=== PATIENT | female | born 1990 ===

== ENCOUNTER 2017-11-26 00:19 | Emergency (ER) | payer MEDICAID ==
[2017-11-26 00:20] VITALS: BMI 32.2
--- NOTE | 2017-11-26 00:40 | C.PDOC ---
History Of Present Illness Patient with a Hx of seizures presents to the ER after having seizure at home. Patient states she was at home taking a shower and next thing she knew she was walking out of the bathroom somewhat confused and had 2nd degree carlos to the tips of her right 3rd and 4th fingers. Patient believes she had a seizure, fell , and burned her fingers on a heater in the bathroom. Patient does not remember falling, denies headache, dizziness, or vomiting. Time Seen by Provider: 11/26/17 00:39 Chief Complaint (Nursing): Seizure History Per: Patient History/Exam Limitations: no limitations Recent Seizure Activity Began: Just Before Arrival Number Of Seizures: One Length Of Seizures (Duration): Unknown Quality Of Seizure: Generalized Precipitating Factor(s): None Associated Symptoms: Other (Carlos to right 3rd and 4th finger tips) Post-ictal Period: Duration Unknown Severity: Moderate Pain Scale Rating Of: 4 Recent travel outside of the [place]: No Past Medical History Reviewed: Historical Data, Nursing Documentation, Vital Signs Vital Signs: Last Vital Signs Temp 98.4 F 11/26/17 00:30 Pulse 73 11/26/17 00:30 Resp 18 11/26/17 00:30 BP 128/83 11/26/17 00:30 Pulse Ox 100 11/26/17 02:46 - Medical History PMH: Graves' Disease, Seizures Family History: States: No Known Family Hx - Social History Hx Alcohol Use: No Hx Substance Use: No - Immunization History Hx Tetanus Toxoid Vaccination: No Hx Influenza Vaccination: No Hx Pneumococcal Vaccination: No Review Of Systems Constitutional: Negative for: Fever, Chills Cardiovascular: Negative for: Chest Pain Respiratory: Negative for: Shortness of Breath Gastrointestinal: Negative for: Vomiting Skin: Positive for: Other (Carlos to right 3rd and 4th finger tips.) Neurological: Positive for: Seizures. Negative for: Headache, Dizziness Physical Exam - Physical Exam Appears: Non-toxic Skin: Warm, Dry Head: Atraumatic, Normacephalic Eye(s): bilateral: Normal Inspection, PERRL, EOMI Oral Mucosa: Moist Neck: Normal ROM, No Midline Cervical Tenderness, No Paracervical Tenderness, No Step Off Deformity, Supple Chest: Symmetrical, No Tenderness Cardiovascular: Rhythm Regular Respiratory: No Rales, No Rhonchi, No Wheezing Gastrointestinal/Abdominal: Soft, No Tenderness Extremity: Other (Bullae to tips of right 3rd and 4th fingers) Neurological/Psych: Oriented x3 ED Course And Treatment - Laboratory Results Result Diagrams: 11/26/17 01:32 11/26/17 01:32 O2 Sat by Pulse Oximetry: 100 (Room air) Pulse Ox Interpretation: Normal Progress Note: CT head and urinalysis ordered. Tetanus vaccination and IV fluids administered. Reevaluation Time: 03:35 Reassessment Condition: Improved Disposition Counseled Patient/Family Regarding: Studies Performed, Diagnosis, Need For Followup, Rx Given - Disposition Referrals: [facility] [Outside] [facility] [Outside] Disposition: HOME/ ROUTINE Disposition Time: 00:40 Condition: FAIR Additional Instructions: Please return if symptoms recur Prescriptions: Bacitracin OINT 1 applic TP TID #1 tube Ibuprofen [Motrin Tab] 800 mg PO TID #15 tab Instructions: Epilepsy (DC), Second Degree Burn (ED) Forms: [employer] (Guatemalan) Print Language: SWAZI - Clinical Impression Clinical Impression: Seizure, Burn of finger of right hand, second degree - Scribe Statement The provider has reviewed the documentation as recorded by the Scribbrisa Rosales All medical record entries made by the Scribe were at my direction and personally dictated by me. I have reviewed the chart and agree that the record accurately reflects my personal performance of the history, physical exam, medical decision making, and the department course for this patient. I have also personally directed, reviewed, and agree with the discharge instructions and disposition.
[2017-11-26] MEDS ORDERED: Sodium Chloride 0.9% 1,000 ML IV ONE (00:46)
--- NOTE | 2017-11-26 01:29 | CT ---
EXAM: CT Head Without Intravenous Contrast CLINICAL HISTORY: 27 years old, female; Pain; Other: Siezure; Additional info: Seizure TECHNIQUE: Axial computed tomography images of the head/brain without intravenous contrast. All CT scans at this facility use one or more dose reduction techniques, viz.: automated exposure control; ma/kV adjustment per patient size (including targeted exams where dose is matched to indication; i.e. head); or iterative reconstruction technique. Coronal and sagittal reformatted images were created and reviewed. COMPARISON: No relevant prior studies available. FINDINGS: Brain: Unremarkable. No significant white matter disease. No edema. No intracranial mass, mass effect, or midline shift. Ventricles: Unremarkable. No ventriculomegaly. Bones/joints: Unremarkable. No acute fracture. Soft tissues: Unremarkable. Sinuses: Unremarkable as visualized. No acute sinusitis. Mastoid air cells: Unremarkable as visualized. No mastoid effusion. IMPRESSION: No acute intracranial abnormality.
[2017-11-26 01:36] LABS: BASO # 0.1 K/uL (0.0-0.2); BASO % 0.8 % (0.0-2.0); EOS % 0.4 % (0.0-4.0); HEMOGLOBIN 13.3 g/dL (11.0-16.0); LYMPH # 1.4 K/uL (1.0-4.3); MEAN CELL VOLUME 89.2 fL (81.0-99.0); MEAN CORPUSCULAR HEMOGLOBIN 30.3 pg (27.0-31.0); MEAN PLATELET VOLUME 11.8 fL (7.2-11.7); MONO # 0.9 K/uL (0.0-0.8); MONO % 7.5 % (0.0-10.0); NEUT # 9.2 K/uL (1.8-7.0); NEUT % 79.3 % (50.0-75.0); RBC 4.38 Mil/uL (3.80-5.20); RED CELL DISTRIBUTION WIDTH 13.6 % (11.5-14.5); WHITE BLOOD COUNT 11.6 K/uL (4.8-10.8)
[2017-11-26 01:50] LABS: ALB/GLOB RATIO 1.2 (1.0-2.1); ALBUMIN 4.3 g/dL (3.5-5.0); ALT/SGPT 19 U/L (9-52); AST/SGOT 19 U/L (14-36); BLOOD UREA NITROGEN 13 mg/dL (7-17); GFR AFRICAN-AMERICAN > 60; GFR NON-AFRICAN AMERICAN > 60
[2017-11-26 03:58] VITALS: BP 120/80; PULSE 78; RESP 13; TEMP 97.9; O2SAT 98
== END 2017-11-26 03:58 | disposition home or self-care (01) ==
LOC: C.ER 00:19
DX: G40.909 Epilepsy, unspecified, not intractable, without status epilepticus (principal); T23.231A Burn of second degree of multiple right fingers (nail), not including thumb, initial encounter; X19.XXXA Contact with other heat and hot substances, initial encounter; Y93.E1 Activity, personal bathing and showering; Y92.002 Bathroom of unspecified non-institutional (private) residence as the place of occurrence of the external cause; Z23 Encounter for immunization
CPT/HCPCS: 70450; 80053; 85025; 90471; 90715; 96360; 99285; J7040

== ENCOUNTER 2018-02-03 10:37 | Emergency (ER) | payer MEDICAID, OTHER ==
[2018-02-03 10:38] VITALS: BMI 32.2
[2018-02-03 12:12] LABS: BASO % 0.6 % (0.0-2.0); EOS % 0.6 % (0.0-4.0); HEMOGLOBIN 13.1 g/dL (11.0-16.0); LYMPH % 30.4 % (20.0-40.0); MEAN CORPUSCULAR HEMOGLOBIN 30.1 pg (27.0-31.0); MEAN CORPUSCULAR HGB CONC 33.5 g/dL (33.0-37.0); MEAN PLATELET VOLUME 11.1 fL (7.2-11.7); MONO # 0.6 K/uL (0.0-0.8); MONO % 8.9 % (0.0-10.0); NEUT # 3.9 K/uL (1.8-7.0); NEUT % 59.5 % (50.0-75.0); RBC 4.34 Mil/uL (3.80-5.20); RED CELL DISTRIBUTION WIDTH 13.1 % (11.5-14.5); WHITE BLOOD COUNT 6.5 K/uL (4.8-10.8)
[2018-02-03 12:25] LABS: ALBUMIN 4.1 g/dL (3.5-5.0); CALCIUM 8.8 mg/dl (8.6-10.4); GFR AFRICAN-AMERICAN > 60; GFR NON-AFRICAN AMERICAN > 60
[2018-02-03 12:45] LABS: ALT/SGPT < 6 U/L (9-52); AST/SGOT 28 U/L (14-36); BLOOD UREA NITROGEN 8 mg/dL (7-17); CK-MB < 0.22 ng/mL (0.0-3.38)
--- NOTE | 2018-02-03 12:55 | RAD ---
PROCEDURE: CHEST RADIOGRAPH, 1 VIEW HISTORY: chest pain COMPARISON: None available. FINDINGS: LUNGS: The lungs are well inflated and clear. PLEURA: No pneumothorax or pleural fluid seen. CARDIOVASCULAR: Normal. OSSEOUS STRUCTURES: No significant abnormalities. VISUALIZED UPPER ABDOMEN: Normal. OTHER FINDINGS: In neurostimulator battery pack overlies the left chest. IMPRESSION: No active pulmonary disease.
--- NOTE | 2018-02-03 14:24 | CT ---
PROCEDURE: CT Chest without contrast HISTORY: Evaluate VNS device, left sided chest pain COMPARISON: None. TECHNIQUE: Contiguous axial images were obtained through the chest without intravenous contrast enhancement. Sagittal and coronal reconstructions were performed. Radiation dose (DLP): 171.81 mGy-cm. This CT exam was performed using one or more of the following dose reduction techniques: Automated exposure control, adjustment of the mA and/or kV according to patient size, and/or use of iterative reconstruction technique. FINDINGS: There is a VNS device with the pacemaker device implanted in the left upper chest wall and the stimulator lead directed cranially and coiled in the deep soft tissues of the left lateral neck. LUNGS: The lungs are well inflated and clear. There is minimal subsegmental atelectasis in the lung bases. There is no mass, nodule or focal consolidation. There are no endobronchial lesions. MEDIASTINUM: The aorta is not dilated. The heart is normal in size. No pericardial effusion. No pathologic lymphadenopathy. PLEURA: No pleural fluid. No pneumothorax. BONES: No fracture. No destructive lesion. UPPER ABDOMEN: Grossly unremarkable. OTHER FINDINGS: None. IMPRESSION: 1. VNS device is identified with pacemaker implanted in the left upper chest wall and stimulator lead projecting cranially and coiled the deep soft tissues of the left lateral neck. 2. Normal noncontrast CT scan of the chest.
--- NOTE | 2018-02-03 14:48 | C.PDOC ---
Time Seen by Provider: 02/03/18 11:05 Chief Complaint (Nursing): Chest Pain Past Medical History Vital Signs: Last Vital Signs Temp 98.2 F 02/03/18 10:52 Pulse 82 02/03/18 10:52 Resp 16 02/03/18 10:52 BP 108/67 02/03/18 10:52 Pulse Ox 99 02/03/18 10:52 - Medical History PMH: Graves' Disease, Seizures Denies: Chronic Kidney Disease Family History: States: Unknown Family Hx - Social History Hx Alcohol Use: No Hx Substance Use: No - Immunization History Hx Tetanus Toxoid Vaccination: No Hx Influenza Vaccination: No Hx Pneumococcal Vaccination: No ED Course And Treatment - Laboratory Results Result Diagrams: 02/03/18 12:09 02/03/18 12:09 O2 Sat by Pulse Oximetry: 99 Disposition Counseled Patient/Family Regarding: Studies Performed, Diagnosis, Need For Followup, Rx Given - Disposition Referrals: Eleuterio Anaya MD [Staff Provider] - Kathryn Dobbins MD [Staff Provider] - Disposition: HOME/ ROUTINE Disposition Time: 14:45 Condition: STABLE Additional Instructions: FOLLOW UP WITH MEDICINE AND NEUROLOGY WITHIN 1 WEEK USE MEDICATION NEEDED FOR PAIN RETURN TO ER IF SYMPTOMS WORSEN Prescriptions: Naproxen 375 mg PO BID PRN #20 tablet PRN Reason: pain Instructions: Chest Pain That Is Not Caused by the Heart (DC) Forms: [employer] (Estonian) Print Language: KYRGYZ - POA Present On Arrival: None - Clinical Impression Clinical Impression: Non-cardiac chest pain
--- NOTE | 2018-02-03 14:49 | C.PDOC ---
History Of Present Illness 28-year-old female with PMHx of Seizures disorder presents to the emergency department with complaints of intermittent left sided chest pain over the past two months. Patient describes the pain as a burning sensation, intermittent, nonradiating. Patient states she has a VPN device implanted in left chest for her seizure idsorder. Patient's primary doctor and neurologist are in [place], and she recently moved to [place]. Patient states she is compliant with her medications and denies recent seizures. Patient also denies SOB, cough, fever, abdominal pain, nausea, vomiting, diarrhea. Time Seen by Provider: 02/03/18 11:05 Chief Complaint (Nursing): Chest Pain History Per: Patient History/Exam Limitations: no limitations Onset/Duration Of Symptoms: Days Current Symptoms Are (Timing): Still Present Severity: Mild Quality: "Pain" Exacerbating Factors: Deep Breathing Past Medical History Reviewed: Historical Data, Nursing Documentation, Vital Signs Vital Signs: Last Vital Signs Temp 98.6 F 02/03/18 14:59 Pulse 83 02/03/18 14:59 Resp 18 02/03/18 14:59 BP 102/67 02/03/18 14:59 Pulse Ox 100 02/03/18 14:59 - Medical History PMH: Seizures Family History: States: No Known Family Hx - Social History Hx Alcohol Use: No Hx Substance Use: No - Immunization History Hx Tetanus Toxoid Vaccination: No Hx Influenza Vaccination: No Hx Pneumococcal Vaccination: No Review Of Systems Except As Marked, All Systems Reviewed And Found Negative. Constitutional: Negative for: Fever, Chills Cardiovascular: Positive for: Chest Pain. Negative for: Palpitations Respiratory: Negative for: Cough, Shortness of Breath Gastrointestinal: Negative for: Nausea, Vomiting, Abdominal Pain, Diarrhea Musculoskeletal: Negative for: Back Pain Skin: Negative for: Rash Neurological: Negative for: Weakness, Numbness, Headache, Dizziness Physical Exam - Physical Exam Appears: Well, Non-toxic, No Acute Distress Skin: Normal Color, Warm, Dry, No Rash Head: Normacephalic Eye(s): bilateral: Normal Inspection Oral Mucosa: Moist Chest: Symmetrical, No Deformity, No Tenderness, No Ecchymosis, No Subcutaneous Emphysema, Other (no crepitus ) Cardiovascular: Rhythm Regular, Other (left inferior neck well healed surgical scar) Respiratory: Normal Breath Sounds, No Rales, No Rhonchi, No Wheezing Gastrointestinal/Abdominal: Normal Exam, Bowel Sounds, Soft, No Tenderness Extremity: Normal ROM, No Pedal Edema, No Calf Tenderness, No Swelling Pulses: Left Dorsalis Pedis: Normal, Right Dorsalis Pedis: Normal Neurological/Psych: Oriented x3 ED Course And Treatment - Laboratory Results Result Diagrams: 02/03/18 12:09 02/03/18 12:09 ECG: Interpreted By Me, Viewed By Me ECG Rhythm: Sinus Rhythm ECG Interpretation: Normal (normal axis, no acute ST/T wave changes) O2 Sat by Pulse Oximetry: 99 (RA) Pulse Ox Interpretation: Normal - Other Rad CXR X-Ray: Viewed By Me, Read By Radiologist Interpretation: Accession No. : [id number]. Patient Name / ID : RYANN PETERSON / [id number]. Exam Date : 02/03/2018 12:45:39 ( Approved ). Study Comment : Sex / Age : F / 28Y. Creator : Christi English MD. Dictator : Christi English MD. Material Control Clerk : Casino Accountant : Christi English MD. Approver2 : Report Date : 02/03/2018 12:53:30. My Comment : . PROCEDURE: CHEST RADIOGRAPH, 1 VIEW. HISTORY: chest pain. COMPARISON: None available. FINDINGS: LUNGS: The lungs are well inflated and clear. PLEURA: No pneumothorax or pleural fluid seen. CARDIOVASCULAR: Normal. OSSEOUS STRUCTURES: No significant abnormalities. VISUALIZED UPPER ABDOMEN: Normal. OTHER FINDINGS: In neurostimulator battery pack overlies the left chest. IMPRESSION: No active pulmonary disease. - CT Scan/US CT ABD/PEL Other Rad Studies (CT/US): Read By Radiologist, Radiology Report Reviewed CT/US Interpretation: Accession No. : [id number]. Patient Name / ID : RYANN PETERSON / [id number]. Exam Date : 02/03/2018 13:38:38 ( Approved ) . Study Comment : Sex / Age : F / 28Y. Creator : Mindy Mcadams. Dictator : Christi English MD. Material Control Clerk : Casino Accountant : Christi English MD. Approver2 : Report Date : 02/03/2018 13:50:50. My Comment : . PROCEDURE: CT Chest without contrast. HISTORY: Evaluate VNS device, left sided chest pain. COMPARISON: None. TECHNIQUE: Contiguous axial images were obtained through the chest without intravenous contrast enhancement. Sagittal and coronal reconstructions were performed. . Radiation dose (DLP): 171.81 mGy- cm. This CT exam was performed using one or more of the following dose reduction techniques: Automated exposure control, adjustment of the mA and/or kV according to patient size, and/or use of iterative reconstruction technique. FINDINGS: There is a VNS device with the pacemaker device implanted in the left upper chest wall and the stimulator lead directed cranially and coiled in the deep soft tissues of the left lateral neck. LUNGS: The lungs are well inflated and clear. There is minimal subsegmental atelectasis in the lung bases. There is no mass, nodule or focal consolidation. There are no endobronchial lesions. MEDIASTINUM: The aorta is not dilated. The heart is normal in size. No pericardial effusion. No pathologic lymphadenopathy. PLEURA : No pleural fluid. No pneumothorax. BONES: No fracture. No destructive lesion. UPPER ABDOMEN: Grossly unremarkable. OTHER FINDINGS: None. IMPRESSION: 1. VNS device is identified with pacemaker implanted in the left upper chest wall and stimulator lead projecting cranially and coiled the deep soft tissues of the left lateral neck. 2. Normal noncontrast CT scan of the chest. Progress Note: Blood work, EKG and CT chest (to evaluate device) ordered and reviewed. Reevaluation Time: 14:45 Reassessment Condition: Improved (Patient reassessed, is resting comfortably, has no current chest pain. Blood work, including d-dimer, WNL. CT chest unremarkable, no abnormal findings in and around VPN device. Patient given follow up with information for medicine and neurology [employer]. She was instructed to follow up within 1 week, and understands she should return to ED if symptoms worsen.) Disposition Counseled Patient/Family Regarding: Studies Performed, Diagnosis, Need For Followup, Rx Given - Disposition Referrals: Kathryn Dobbins MD [Staff Provider] - Eleuterio Anaya MD [Staff Provider] - Disposition: HOME/ ROUTINE Disposition Time: 14:45 Condition: STABLE Additional Instructions: FOLLOW UP WITH MEDICINE AND NEUROLOGY WITHIN 1 WEEK USE MEDICATION NEEDED FOR PAIN RETURN TO ER IF SYMPTOMS WORSEN Prescriptions: Naproxen 375 mg PO BID PRN #20 tablet PRN Reason: pain Instructions: Chest Pain That Is Not Caused by the Heart (DC) Forms: [employer] (Kiswahili) Print Language: BULGARIAN - Clinical Impression Clinical Impression: Non-cardiac chest pain, Seizure disorder - Scribe Statement The provider has reviewed the documentation as recorded by the Scribe (Chad Oscar) Chad Oscar
[2018-02-03 14:59] VITALS: BP 102/67; PULSE 83; RESP 18; TEMP 98.6
[2018-02-05 13:52] VITALS: O2SAT 99
== END 2018-02-03 15:00 | disposition home or self-care (01) ==
LOC: C.ER 10:37
DX: R07.89 Other chest pain (principal); G40.909 Epilepsy, unspecified, not intractable, without status epilepticus